=== PATIENT | male | born 1940 | race Caucasian/White ===

== ENCOUNTER 2024-09-29 19:29 | Emergency (ER) | payer MEDICARE, BC ==
[2024-09-29] MEDS: Sodium Chloride 0.9% 1,000 ML IV ONE (19:45)
[2024-09-29] MEDS: Sodium Chloride 0.9% 2.5 ML Syringe FLUSH PRN (19:46)
[2024-09-29] MEDS: Sodium Chloride 0.9% 10 ML Syringe FLUSH PRN (19:46)
[2024-09-29 19:51] LABS: HEMATOCRIT 40.2 % (42.0-52.0); HEMOGLOBIN 14.3 g/dL (14.0-18.0); IMMATURE GRAN ABSOLUTE AUTO 0.04 K/uL (0.00-0.05); IMMATURE GRAN PERCENT AUTO 0.5 % (0.0-0.4); LYMPHOCYTES ABSOLUTE AUTO 0.61 K/uL (1.00-4.80); LYMPHOCYTES PERCENT AUTO 7.1 % (24.0-44.0); MEAN CORPUSCULAR HEMOGLOBIN 31.6 pg (28.0-32.0); MEAN CORPUSCULAR HGB CONC 35.6 g/dL (32.0-36.0); MEAN CORPUSCULAR VOLUME 88.7 fL (83.0-99.0); MEAN PLATELET VOLUME 10.6 fL (9.4-12.4); MONOCYTES PERCENT AUTO 9.3 % (0.0-8.0); NEUTROPHILS ABSOLUTE AUTO 7.17 K/uL (1.80-7.70); NEUTROPHILS PERCENT AUTO 83.1 % (41.0-71.0); PLATELET COUNT,PLT 111 K/uL (150-400); RED BLOOD CELL COUNT 4.53 M/uL (4.52-5.90); WHITE BLOOD CELL COUNT,WBC 8.62 K/uL (3.9-11.3)
[2024-09-29 19:56] LABS: PH,VENOUS 7.21 (7.31-7.41)
[2024-09-29 20:09] LABS: INR 1.2 (0.86-1.11)
[2024-09-29 20:24] LABS: LACTIC ACID 8.9 mmol/L (0.4-2.0)
[2024-09-29] MEDS: Sodium Chloride 0.9% 500 ML IV ONE (20:25)
[2024-09-29 20:33] LABS: A/G RATIO 0.9 (0.9-1.6); ALBUMIN 3.4 g/dL (3.4-5.0); ALKALINE PHOSPHATASE 67 U/L (46-116); ASPARTATE AMNIOTRANSFERASE,AST 253 IU/L (15-37); BLOOD UREA NITROGEN,BUN 47 mg/dL (7.0-18.0); CALCIUM 9.1 mg/dL (8.5-10.1); CARBON DIOXIDE,CO2 17.5 mmol/L (21.0-32.0); CHLORIDE,CL 96 mmol/L (98-107); CREATININE 3.7 mg/dL (0.8-1.3); GLUCOSE RANDOM 497 mg/dL (74-106); POTASSIUM,K 4.9 mmol/L (3.5-5.1); PRO B-TYPE NATRIUR PEPT,BNPPRO 4438 pg/mL (0-450); PROTEIN TOTAL,TP 7.3 g/dL (6.4-8.2); SODIUM,NA 132 mmol/L (136-148)
[2024-09-29 20:54] LABS: ESTIMATED GFR 16 mL/min (>60)
[2024-09-29 21:06] LABS: CREATINE KINASE,CK 10390 U/L (26-308)
[2024-09-29 21:20] LABS: ALANINE AMINOTRANSFERASE,ALT 64 IU/L (14-63)
[2024-09-30 00:59] LABS: PH,VENOUS 7.38 (7.31-7.41)
[2024-09-30] MEDS: Aspirin 325 MG Tab PO ONE (00:59)
[2024-09-30 01:36] LABS: CARBON DIOXIDE,CO2 16.2 mmol/L (21.0-32.0); CREATININE 3.2 mg/dL (0.8-1.3); EST CRCL DRUG DOSING (CG) 18.63 mL/min; POTASSIUM,K 5.3 mmol/L (3.5-5.1)
[2024-09-30] MEDS: Sodium Chloride 0.9% 1,000 ML IV SCH (01:50)
[2024-09-30 03:05] VITALS: BP 128/77; PULSE 102
== END 2024-09-30 03:03 | disposition other institution (70) ==
LOC: MW.ED 19:29
DX: T79.6XXA Traumatic ischemia of muscle, initial encounter (principal); I50.43 Acute on chronic combined systolic (congestive) and diastolic (congestive) heart failure; N17.9 Acute kidney failure, unspecified; E86.0 Dehydration; R79.89 Other specified abnormal findings of blood chemistry; Z79.4 Long term (current) use of insulin; Z79.899 Other long term (current) drug therapy; Z75.8 Other problems related to medical facilities and other health care
CPT/HCPCS: 36415; 70450; 71045; 71250; 72125; 74176; 80048; 80053; 82009; 82550; 82803; 82947; 83605; 83880; 84484; 85025; 85610; 87040; 87154; 93005; 96360; 96361; 99285; A9270; J7030; J3490